=== PATIENT | male | born 1970 | race Caucasian/White ===

== ENCOUNTER → 2018-05-22 12:34 | Day surgery (SDC) | payer OTHER ==
[~2018-05-22 12:34] MED LIST: Acetaminophen TAB* 325 MG PO PRN; Bacitracin OINTMENT* 0.5% 0.5 oz TUBE ONE; Buffered Lidocaine 0.9% SYRIN* 5 ML/SYR SYRINGE INTRADERM ONE; Dexamethasone IV* 4 MG/ML 1 ML (4 MG) IV SLOW PU ONE; Dexamethasone IV* 4 MG/ML 1 ML (4 MG) ONE; Famotidine IV* 10 MG/ML 2 ML (20 mg) IV ONE; Famotidine IV* 10 MG/ML 2 ML (20 mg) ONE; HYDROcodone/ACETAMIN 5-325 MG* 1 TAB PO PRN; Ibuprofen TAB* 600 MG PO PRN; Lidocain 1% EPI 1:100,000 * 30 ML MDV ONE; Methylene Blue 0.5 %* 50 MG/10 ML AMP IV ONE; Midazolam* 1 MG/ML 2 ML VIAL (2 MG) ONE; Naloxone* 0.4 MG/ML 1 ML VIAL IV PRN; Ondansetron INJ* 2 MG/ML VIAL IV PRN; Propofol* 10 MG/ML 20 ML BTL ONE; fentaNYL* 50 MCG/ML 2 ML VIAL (100 MCG VIAL) IV PRN; fentaNYL* 50 MCG/ML 2 ML VIAL (100 MCG VIAL) ONE
[2018-05-22 19:29] VITALS: BP 151/98
--- NOTE | 2018-05-23 11:30 | OP ---
DATE OF OPERATION: 05/22/18 - [facility] DATE OF : 74 SURGEON: Berny Marquez MD SALESPERSON NEW CARS: None. ANESTHESIA: Local with MAC. PRE-OP DIAGNOSIS: Left-sided deafness. POST-OP DIAGNOSIS: Left-sided deafness. OPERATIVE PROCEDURE: Left Baha device implantation. ESTIMATED BLOOD LOSS: Less than 5 cc. COMPLICATIONS: None. 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 The decision was made to place a left-sided Baha implant. DESCRIPTION OF PROCEDURE: On 05/22/18, the patient was brought to the operating room. The patient's left ear was marked, the intended abutment site and incision site. The abutment site was located approximately 60 mm away from the external auditory meatus, just a little bit below the top of the pinna such that the patient's glasses would not interfere with the abutment placement. The incision site was also marked. The patient's left scalp was then prepped with Betadine and he was draped in a sterile fashion and a time-out was performed. Throughout the case, light sedation was ensured by the anesthesiologist. The procedure was then begun. Scalp thickness was measured at 6 mm with a 27-gauge needle. This was used to facilitate choosing the subsequent abutment height, which was 10 mm. The area was extensively infiltrated with local anesthetic, which was 1% lidocaine with 1:100,000 epinephrine. Once adequate time had been allotted for vasoconstriction, the procedure was begun. The 3 cm incision was made with a #15 blade. The incision was carried down to pericranium. The edges of the incision were cauterized with monopolar cautery using Bovie at a setting of 25. The flap was then elevated posteriorly. The intended drilling site was identified. A small cruciate incision was made in the pericranium, which was then elevated with a small elevator. The 3 mm finished goods planner hole was drilled initially. There was good bone stock at the base of that and so a 4-mm finished goods planner hole was placed. Again, there was good dense bone stock at the base of this and so a widening bit was selected with a 4 mm depth. This was then used. Two passes were made in order to create adequate counter sinking around the edges. During drilling, irrigation was used extensively. The implant was then selected, it was placed in using a torque of 35 newtons. It seated nicely and came to a full stop with what appeared to be excellent depth. A 5-mm punch was then used to make a hole in the scalp at the place where the abutment was to protrude through. The scalp was then placed over the abutment and the abutment delivered through the 5-mm punch hole. The skin was then closed using 4-0 nylon. Interrupted stitches were performed. The suture lined and had bacitracin ointment applied. The healing cap and dressing material were applied. The patient was then returned to the PACU in stable condition. [id number]/[facility] #: [id number] SARMAD
== END | disposition home or self-care (01) ==
LOC: OR 12:34
PROVIDERS: ATTEND Otolaryngology
DX: H90.42 Sensorineural hearing loss, unilateral, left ear, with unrestricted hearing on the contralateral side (principal); I10 Essential (primary) hypertension; R42 Dizziness and giddiness; J30.89 Other allergic rhinitis
CPT/HCPCS: A9270-GY; J1100; J2250; J2704; J3010; L8690

== ENCOUNTER 2018-08-04 08:58 | Emergency (ER) | payer OTHER ==
--- OUTSIDE RECORDS SUMMARY | 2018-08-04 09:02 | XMS REPORT | Continuity of Care Document ---
:1970 External Reference #:[id number] Author Name Berny Marquez MD Address [address] [place] [address] Care Team Providers Name Role Phone Jeffry Wheeler MD Primary Care Physician Unavailable Payers Type Date Identification Numbers Payment Provider Subscriber Policy Number: [id number] [employer] Group Number: [id number] [id number] Group Name: [id number] [place] [address] PayID: [id number] Advance Directives Description No Information Available Problems Description No Information Family History Date Family Member(s) Problem(s) Comments General Allergies Social History Type Date Description Comments Sex Unknown Occupation Professor Tobacco Use Start: Unknown Never Smoked Cigarettes Tobacco Use Start: Unknown Never Smoked Cigars Tobacco Use Start: Unknown Never Smoked A Pipe Smokeless Tobacco Never Used Smokeless Tobacco ETOH Use Currently occasionally consumes alcohol Allergies, Adverse Reactions, Alerts Description No Known Drug Allergies Medications Medication Date Status Form Strength Qnty SIG Indications Ordering Provider Flonase Active Suspension 50mcg/Act as needed Galo Wheeler 000 Jeffry HANSEN Relief Lisinopril Active Tablets 10mg 1 by Unknown 000 mouth every day Aspirin Adult Hx Tablets DR 81mg 1x/day Unknown Low Strength 000 - 018 Immunizations Description No Information Available Vital Signs Date Vital Result Comment 07/16/2018 8:34am Weight 260.00 lb Weight 117.936 kg Height 70 inches 5'10" Height in cm's 177.8 cm BMI (Body Mass Index) 37.3 kg/m2 06/04/2018 9:38am Weight 251.00 lb Weight 113.854 kg Height 70 inches 5'10" Height in cm's 177.8 cm BMI (Body Mass Index) 36.0 kg/m2 05/30/2018 10:43am Weight 251.00 lb Weight 113.854 kg Height 70 inches 5'10" Height in cm's 177.8 cm BMI (Body Mass Index) 36.0 kg/m2 04/12/2018 10:14am BP Systolic 165 mmHg BP Diastolic 106 mmHg Heart Rate 66 /min Respiratory Rate 18 /min Weight 251.00 lb Weight 113.854 kg Height 70 inches 5'10" Height in cm's 177.8 cm BMI (Body Mass Index) 36.0 kg/m2 02/07/2018 2:04pm Weight 255.00 lb Weight 115.668 kg Height 70 inches 5'10" Height in cm's 177.8 cm BMI (Body Mass Index) 36.6 kg/m2 09/07/2016 2:08pm BP Systolic 154 mmHg BP Diastolic 103 mmHg Heart Rate 83 /min Respiratory Rate 16 /min Weight 255.00 lb Weight 115.668 kg Height 70 inches 5'10" Height in cm's 177.8 cm BMI (Body Mass Index) 36.6 kg/m2 Results Description No Information Available Procedures Date Code Description Status 05/22/2018 16788 Implantation Osseointegrated Implant Temporal Bone Completed W/Percutaneous 02/07/2018 11285 Tympanometry Completed 02/07/2018 48917 Comprehensive Audiogram Completed Encounters Type Date Location Provider Dx Diagnosis Office Visit 02/07/2018 [place],After Berny Torres H90.42 Snsrnrl hear loss, 2:00p 06/25/07 [place] [facility], left ear, w unrestr hear cntra side Office Visit 09/07/2016 [place],After Berny Torres H90.0 Conductive hearing 2:00p 06/25/07 [place] loss, bilateral Plan of Treatment Future Appointment(s):08/22/2018 10:30 am - Berny Marquez MD at [place], After 06/25/800 - Berny Marquez MDH90.42 Sensorineural hearing loss , unilateral, left ear, with unres
[2018-08-04 09:15] VITALS: BP 143/87
--- NOTE | 2018-08-04 09:49 | UC ---
Knee Pain HPI - HPI Summary HPI Summary: Patient is 48 year old gentleman , who present today to the urgent care with left knee pain for past 5 days. He denies any specific injury or trauma, pain is mainly located on the anterior aspect of the name with associated swelling and some redness. It hurts him at night time as well and today it was hard to put weight on the left side. Denies much kneeling outside of the usual. Patient tried ibuprofen without much relief. - History of Current Complaint Chief Complaint: UCLowerExtremity Stated Complaint: KNEE PAIN Time Seen by Provider: 08/04/18 09:14 Hx Obtained From: Patient Pain Intensity: 3 - Allergies/Home Medications Allergies/Adverse Reactions: Allergies Allergy/AdvReac Type Severity Reaction Status Date / Time DUST MITES Allergy Congestion Uncoded 05/22/18 13:02 Home Medications: Home Medications Ibuprofen TAB* [Motrin TAB* 600 MG] 08/04/18 [History] PMH/Surg Hx/FS Hx/Imm Hx - Additional Past Medical History Additional PMH: Hypertension on lisinopril Previously Healthy: Yes - Surgical History Surgical History: Yes Surgery Procedure, Year, and Place: 2018 LEFT TORP [place]. 2013 LEFT TOR[place] WITH [place]ANOPLASTY [place]. 2009 LEFT TORP [place]. 2007 LEFT TORP [place]. 1999 R [facility]. 2002 RIGHT HERNIA [place] - Social History Alcohol Use: Occasionally Substance Use Type: None Smoking Status (MU): Never Smoked Tobacco Have You Smoked in the Last Year: No Review of Systems All Other Systems Reviewed And Are Negative: Yes Constitutional: Positive: Negative Skin: Positive: Negative Eyes: Positive: Negative ENT: Positive: Negative Respiratory: Positive: Negative Cardiovascular: Positive: Negative Gastrointestinal: Positive: Negative Genitourinary: Positive: Negative Motor: Positive: Negative Neurovascular: Positive: Negative Musculoskeletal: Positive: Arthralgia - Left knee, Decreased ROM - Left knee Neurological: Positive: Negative Psychological: Positive: Negative Is Patient Immunocompromised?: No Physical Exam - Summary Physical Exam Summary: Physical Exam: Const: Appears well. No signs of apparent distress present. Alert and oriented x 3. Head/Face: Atraumatic, normocephalic on inspection. Eyes: EOMI and PERRLA in both eyes. Conjunctivae clear. ENT: Hearing normal, Respiratory: Respirations are unlabored. Lungs clear to auscultation bilaterally, no wheezing , rhonchi or rales noted . CVS: Regular rate and Rhythm, S1S2 normal , no murmurs identified. Extremities: Peripheral circulation is grossly normal. Pulses 2+ Abdomen : Soft non tender , nondistended , Bowel sounds present . No guarding , rebound tenderness or rigidity noted. Skin: No lesions or rash located on the upper extremities or on the lower extremities. Neuro: Cranial nerves II to XII intact, motor and sensory intact. DTR Intact bilaterally. Mood is normal. Affect is normal. Gait: Slightly antalgic gait Left Knee: Insp/Palp: No deformity. Alignment neutral. No effusion. There is swelling/ redness along with tenderness on the infrapatellar area on the anterior aspect of the knee . No joint line tenderness noted. There is a small folliculitis in the area of pain Strength: Quadriceps 5-/5 , No hamstring tightness. ROM: Limited and painful. Extensor mechanism appears intact but weak because of pain. Flexion is painful. Special Tests:Michaela test is negative with firm end point. Posterior drawer test is negative . Valgus stress test at 0 and 30 degrees flexion is negative. Varus stress test at 0 and 30 degrees flexion is negative. Federico's test is negative Triage Information Reviewed: Yes Vital Signs: Initial Vital Signs Temp 98.3 F 08/04/18 09:09 Pulse 70 08/04/18 09:09 Resp 16 08/04/18 09:09 BP 143/87 08/04/18 09:09 Pulse Ox 99 08/04/18 09:09 Vital Signs Reviewed: Yes Knee Pain Course/Dx - Course Course Of Treatment: During the visit today, we discussed the findings which appeared to be consistent with infrapatellar bursitis.there is some hair folliculitis in the area so possibility of early cellulitis cannot be completely ruled out. Plan to treat it with Medrol Dosepak and Keflex. I will prescribe the medication to the pharmacy . Patient expressed understanding . - Differential Dx/Diagnosis Provider Diagnosis: Infrapatellar bursitis of left knee, Cellulitis Discharge - Sign-Out/Discharge Documenting (check all that apply): Patient Departure All imaging exams completed and their final reports reviewed: No Studies - Discharge Plan Condition: Stable Disposition: HOME Prescriptions: Cephalexin CAP* [Keflex CAP*] 500 mg PO TID 10 Days #30 cap methylPREDNISolone [Medrol] 4 mg PO .PER DELICIA 5 Days #1 tab.ds.pk Patient Education Materials: Cellulitis (ED), Knee Bursitis (ED) Referrals: Jeffry Wheeler MD [Primary Care Provider] - Oscar Dempsey MD [Medical Doctor] - 1 Week Additional Instructions: Please start taking the medication as prescribed to the pharmacy . Avoid kneeling on the left knee Ice locally Follow up with orthopedics in 1 week. Patients blood pressure slightly high in Urgent care today , plan follow up with PCP for better control with a month. Return to Urgent care / ER if symptoms get worse. - Billing Disposition and Condition Condition: STABLE Disposition: Home
== END 2018-08-04 10:10 | disposition home or self-care (01) ==
LOC: UCEAST 08:58
DX: M70.52 Other bursitis of knee, left knee (principal); L03.116 Cellulitis of left lower limb; I10 Essential (primary) hypertension; Z79.899 Other long term (current) drug therapy; Z91.09 Other allergy status, other than to drugs and biological substances
CPT/HCPCS: 99202; G0463

== ENCOUNTER → 2019-04-04 10:01 | Day surgery (SDC) | payer OTHER ==
[~2019-04-04 10:01] MED LIST changes: -Buffered Lidocaine 0.9% SYRIN* 5 ML/SYR SYRINGE INTRADERM ONE; +Buffered Lidocaine 1% SYRIN* 1 ML/SYRINGE INTRADERM ONE; +DiMENhydriNATE IV* 50 MG/ML VIAL IV PUSH ONE; +DiMENhydriNATE IV* 50 MG/ML VIAL ONE; +Ibuprofen TAB* 400 MG PO PRN; -Ibuprofen TAB* 600 MG PO PRN; +Ketorolac INJ* 30 MG/ML 1 ML VIAL IV PRN; +Lactated Ringers 1000 ML Bag* 1,000 ML IV SCH; -Lidocain 1% EPI 1:100,000 * 30 ML MDV ONE; +Lidocaine 1% w EPI 1:100,000* MDV 20 ML VIAL ONE; -Methylene Blue 0.5 %* 50 MG/10 ML AMP IV ONE; -Midazolam* 1 MG/ML 2 ML VIAL (2 MG) ONE; -Ondansetron INJ* 2 MG/ML VIAL IV PRN; +PROCHLORPERAZINE INJ 5 MG/ML 2 ML VIAL IV PRN; -Propofol* 10 MG/ML 20 ML BTL ONE; -fentaNYL* 50 MCG/ML 2 ML VIAL (100 MCG VIAL) ONE; +oxyCODONE/Acetamin 5/325 MG* TAB PO PRN
[2019-04-04 14:32] VITALS: BP 150/89
--- NOTE | 2019-04-04 21:54 | OP ---
DATE OF OPERATION: 04/04/19 [facility] DATE OF : 74 SURGEON: Berny Marquez MD SMOOTH PLATER: None. ANESTHESIA: Local. PRE-OP DIAGNOSIS: Left-sided deafness. POST-OP DIAGNOSIS: Left-sided deafness. OPERATIVE PROCEDURE: Placement of left BAHA device, stage of 1 of 2-stage procedure. ESTIMATED BLOOD LOSS: Negligible. INDICATIONS: This is a 49-year-old male who has left-sided deafness. He underwent placement of a BAHA approximately a year ago, but the abutment did not osseointegrate and came out prior to loading with the device. After an appropriate interval of time for healing, the patient elected to have the procedure repeated. DESCRIPTION OF PROCEDURE: On 04/04/19, the patient was brought to the operating room. In the holding area, he had been marked. A site for the new abutment had been selected as well as a secondary site to place the sleeper. Once in the operating room, the patient's head was prepped with Betadine, he was draped sterilely, and a time-out was performed. Approximately 10 cc of 1% lidocaine with 1:100,000 epinephrine was infiltrated into the scalp in the vicinity of the intended procedure. A 15-blade was then used to make a 3 cm incision just posterior to the hairline approximately 1 cm anterior to the intended abutment placement site. The scalp was then raised off of the skull. There was some scarring in this area from the prior procedure and so the periosteum was elevated off of the bone along with the scalp. With skull exposed, the primary placement site was addressed. A ship pilot hole was drilled with a 3 mm guard present. During the drilling, copious irrigation was used. When it was apparent that there was good bone stock at the base of the ship pilot hole, the 3 mm guard was removed and a 4 mm ship pilot hole was drilled. The base of this hole revealed solid bone and so a 4 mm widening drill was then used again with copious irrigation to create the well for the screw. It was created such that there was an approximately 0.5 mm countersink around the edges. Once the well was complete, the 4 mm screw was placed. It was placed with a force of 32 lewis centimeters and went in easily and came to a nice stop without stripping. The screw was placed initially without irrigation and then after it had been started, irrigation was used. A cover screw was then placed on top of this completing placement of the first screw. The sleeper site was then addressed and in an identical fashion, a 4 mm sleeper screw was placed, again an initial ship pilot hole was made first to a depth of 3 mm and then to a depth of 4 mm and then a 4 mm widening mervat was used to create a well with countersink. A 4 mm screw was then placed along with a cover screw. Once both screws were in good position, the scalp was then closed in layers. The deep layer was approximated with 3-0 Vicryl and the skin approximated with 4-0 nylon. Bacitracin ointment and a mastoid dressing were applied. The patient was then delivered to the PACU in stable condition. [id number]/[facility] #: [id number] SARMAD
== END | disposition home or self-care (01) ==
LOC: OR 10:01
PROVIDERS: ATTEND Otolaryngology
DX: H90.42 Sensorineural hearing loss, unilateral, left ear, with unrestricted hearing on the contralateral side (principal); I10 Essential (primary) hypertension; E66.9 Obesity, unspecified
CPT/HCPCS: A9270-GY; C1713; C1776; J1100; J1240